=== PATIENT | male | born 1990 | race African-American/Black ===

== ENCOUNTER 2017-03-06 09:34 | Emergency (ER) | payer OTHER ==
[~2017-03-06] VITALS: Ht 172.7 cm; Wt 76.8 kg
--- NOTE | 2017-03-06 10:51 | REP ---
Portable chest: Single view. History: Near syncope. Comparison study: No comparison study. Findings: EKG monitoring electrodes overlie the chest. The lungs are well inflated and clear. Heart size is normal. Pulmonary vasculature is not increased. The pleural angles are sharp. No bony abnormality is seen. Impression: No active disease. Signed by Fortunato Hernandez MD 03/06/2017 10:42 A
[2017-03-06 10:56] LABS: BASO % 0.6 % (0.0-1.0); EOS % 0.3 % (0.0-3.0); LARGE UNSTAINED CELL # 0.1 K/mm3 (0.0-0.4); LARGE UNSTAINED CELL % 0.9 % (0.0-4.0); LYMPH # 1.4 K/mm3 (1.5-6.5); LYMPH % 14.2 % (24.0-44.0); MEAN CORPUSCULAR HEMOGLOBIN 30.9 pg (27.0-33.0); MEAN CORPUSCULAR HGB CONC 34.5 g/dl (32.0-36.5); MEAN CORPUSCULAR VOLUME 89.5 fl (80.0-96.0); MONO # 0.5 K/mm3 (0.0-0.8); MONO % 5.1 % (0.0-5.0); NEUTROPHILS # 7.1 K/mm3 (1.8-7.7); PLATELET COUNT, AUTOMATED 181 k/mm3 (150-450); RED CELL DISTRIBUTION WIDTH 12.2 % (11.5-14.5); WHITE BLOOD COUNT 8.9 K/mm3 (4.0-10.0)
[2017-03-06 11:17] LABS: ANION GAP 6 MEQ/L (8-16); BLOOD UREA NITROGEN 25 MG/DL (7-18); CALCIUM LEVEL 10.2 MG/DL (8.5-10.1); CARBON DIOXIDE LEVEL 28 MEQ/L (21-32); CHLORIDE LEVEL 101 MEQ/L (98-107); CREATININE FOR GFR 1.27 MG/DL (0.70-1.30); GLOMERULAR FILTRATION RATE > 60.0 (>60); GLUCOSE, FASTING 98 MG/DL (70-105); POTASSIUM SERUM 4.6 MEQ/L (3.5-5.1); SODIUM LEVEL 135 MEQ/L (136-145)
[2017-03-06] MEDS ORDERED: NS 1,000 ML IV ONE ×2 (12:30)
[2017-03-06 17:01] VITALS: BP 127/69
--- NOTE | 2017-03-06 21:52 | ECGEPIP ---
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
--- NOTE | 2017-03-06 22:01 | ECGEPIP ---
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
== END 2017-03-06 17:08 | disposition home or self-care (01) ==
LOC: M ED 09:34
DX: E86.0 Dehydration (principal); R42 Dizziness and giddiness; M62.82 Rhabdomyolysis